=== PATIENT | male | born 1995 | race Caucasian/White ===

== ENCOUNTER 2016-09-03 07:25 | Emergency (ER) | payer OTHER ==
[2016-09-03 09:27] LABS: HEMOGLOBIN 14.4 gm/dl (14.0-17.5); RED BLOOD COUNT 4.61 M/UL (4.20-5.50)
[2016-09-03 09:55] LABS: BUN/CREATININE RATIO 20 (0-10)
== END 2016-09-03 09:40 | disposition short-term general hospital (02) ==
LOC: ER1 07:25
PROVIDERS: Emergency Medicine
DX: S00.81XA Abrasion of other part of head, initial encounter (principal); S50.312A Abrasion of left elbow, initial encounter; S60.812A Abrasion of left wrist, initial encounter; K13.79 Other lesions of oral mucosa; V89.2XXA Person injured in unspecified motor-vehicle accident, traffic, initial encounter; Y93.89 Activity, other specified; Y92.410 Unspecified street and highway as the place of occurrence of the external cause
CPT/HCPCS: 36415; 71010; 80053; 85025; 90715; 96374; 96375; 99285; J0690; J2270; J2405; J7030; J7050